=== PATIENT | male | born 1960 | race Hispanic/Latino ===

== ENCOUNTER 2017-05-12 17:10 | Emergency (ER) | payer OTHER ==
[2017-05-12] MEDS ORDERED: TETANUS/DIPHTHERIA TOX ADULT 0.5 ML SYR IM ONE (18:00)
--- NOTE | 2017-05-12 20:14 | Diagnostic Imaging Report ---
This study was brought to my attention at 8:04 PM on 05/12/2017. EXAMINATION: Head CT without contrast. HISTORY:Trauma. COMPARISON:None. TECHNIQUE: Multidetector axial images were obtained from the foramen magnum to the vertex without contrast. The images were reconstructed using brain and bone algorithms. Thin section brain images were reformatted into coronal and sagittal planes. Intravenous contrast: None IMAGE QUALITY: Acceptable. FINDINGS: Skull/scalp: No abnormality. Parenchyma: No abnormal density. No acute hemorrhage, mass or acute major vascular territorial infarct. Arteries: No density suggestive of thrombosis. Dural sinuses: No abnormal density suggestive of thrombosis. Ventricles: No hydrocephalus or displacement. Extra-axial spaces: No abnormal density. Brain volume: Normal for age. Craniocervical junction: No mass, Chiari malformation, or basilar invagination. Sella: Partial empty sella. Paranasal/mastoid sinuses: Imaged portions unremarkable. IMPRESSION: No acute posttraumatic intracranial abnormality. Signed by: Dr. Emmie Stapleton M.D. on 05/12/2017 8:10 PM
--- NOTE | 2017-05-12 20:20 | Diagnostic Imaging Report ---
This study was brought to my attention at 8:04 PM on 05/12/2017. History:Trauma. Comparison studies: None Technique: Axial images were obtained through the maxillofacial region. Coronal and sagittal images reconstructed from the axial data. Intravenous contrast: None Findings: Soft tissues: No abnormalities. Bones: No fractures or bony abnormalities. Orbits: Globes: Intact Extra or intraconal abnormalities: None. Paranasal sinuses: Minimal mucosal thickening in left maxillary sinus. IMPRESSION: No acute abnormality. Signed by: Dr. Emmie Stapleton M.D. on 05/12/2017 8:17 PM
[2017-05-12 21:09] VITALS: BP 178/108
== END 2017-05-12 21:11 | disposition home or self-care (01) ==
LOC: ER 17:10
DX: S00.03XA Contusion of scalp, initial encounter (principal); S00.01XA Abrasion of scalp, initial encounter; R42 Dizziness and giddiness; W31.89XA Contact with other specified machinery, initial encounter; Y93.89 Activity, other specified; Y99.0 Civilian activity done for income or pay
CPT/HCPCS: 70450; 70486; 99283